=== PATIENT | female | born 2000 | race Caucasian/White ===

== ENCOUNTER 2021-05-07 17:21 | Emergency (ER) | payer BC ==
[~2021-05-07] VITALS: Ht 180.3 cm; Wt 56.7 kg
[2021-05-07 17:33] VITALS: BP 103/51
[2021-05-07 18:18] LABS: URINE BILIRUBIN NEGATIVE (Negative); URINE BLOOD 2+ (Negative); URINE CLARITY CLEAR; URINE COLOR YELLOW; URINE GLUCOSE-RANDOM* NEGATIVE (Negative); URINE KETONES TRACE (Negative); URINE LEUKOCYTES-REFLEX NEGATIVE (Negative); URINE NITRITE-REFLEX NEGATIVE (Negative); URINE PROTEIN (DIPSTICK) NEGATIVE (Negative); URINE UROBILINOGEN 0.2 E.U./dl (0.2-1.0)
[2021-05-07 18:28] LABS: BACTERIA-REFLEX 1-9 Few /HPF (None Seen); CASTS None Seen /LPF (None Seen); CRYSTALS None Seen /LPF (None Seen); SQUAMOUS 0-3 Few /LPF (0-3); URINE RBC 3-10 Few /HPF (NONE SEEN); URINE WBC-REFLEX 0-5 Rare /HPF (0-5)
[2021-05-07] MEDS ORDERED: PYRIDIUM200 MG PO (18:35)
== END 2021-05-07 18:42 | disposition home or self-care (01) ==
LOC: ER 17:21
PROVIDERS: Emergency Medicine
DX: U07.1 COVID-19 (principal); F41.9 Anxiety disorder, unspecified; F17.210 Nicotine dependence, cigarettes, uncomplicated; Z88.0 Allergy status to penicillin